=== PATIENT | female | born 1940 | race Caucasian/White ===

== ENCOUNTER 2019-05-03 18:23 | Inpatient (IN) | payer MEDICARE, BC ==
[2019-05-03] MEDS ORDERED: DIPH,PERTUS(ACELL)TETVAC-LF 0.5 ML VIAL IM ONE (18:48)
[2019-05-03] MEDS ORDERED: fentaNYL (PF) 50 MCG/ML 2 ML AMP IV STA (18:49)
--- NOTE | 2019-05-03 18:53 | ED ---
Fall HPI - General Chief Complaint: Fall Stated Complaint: Fall, shoulder injury Time Seen by Provider: 05/03/19 18:40 Source: patient, family Mode of arrival: wheelchair - History of Present Illness Initial Comments: This is an 79-year-old female history of hypertension and hyperlipidemia former smoker also states she has spinal stenosis who was in her kitchen today when she states her leg didn't cooperate with her as sometimes doesn't and she fell onto a carpeted floor. She complains of pain in the right side of her face no overt neck injury no loss of function to her upper or lower extremities except for severe right shoulder pain that she states is about 10/10 in severity she reports no hip pain no other injuries reported. No palpitations. No other modifying factors. She states that this type of incident has happened before. MD Complaint: fall - Related Data Allergies Allergy/AdvReac Type Severity Reaction Status Date / Time codeine Allergy Unknown Verified 05/03/19 19:08 morphine Allergy Unknown Verified 05/03/19 18:32 prednisone Allergy Unknown Verified 05/03/19 19:08 sulfamethoxazole Allergy Unknown Verified 05/03/19 19:08 [From Bactrim] trimethoprim [From Bactrim] Allergy Unknown Verified 05/03/19 19:08 Review of Systems ROS Statement: Those systems with pertinent positive or pertinent negative responses have been documented in the HPI. ROS Other: All systems not noted in ROS Statement are negative. Past Medical History Past Medical History: Hyperlipidemia, Hypertension Additional Past Medical History / Comment(s): crohns History of Any Multi-Drug Resistant Organisms: None Reported Additional Past Surgical History / Comment(s): bowel resections, thyroid surgery Past Psychological History: No Psychological Hx Reported Smoking Status: Former smoker Past Alcohol Use History: None Reported Past Drug Use History: None Reported General Exam - General Exam Comments Initial Comments: This is a well-developed sec appearing female who is awake alert oriented 3 [place] Coma Scale of 15 Limitations: no limitations General appearance: alert, anxious, in distress Head exam: Present: normocephalic, other (Ecchymosis and edema seen to the right lateral and inferior orbit no step-off or crepitation no open wounds) Eye exam: Present: normal appearance, PERRL, EOMI. Absent: scleral icterus, conjunctival injection, periorbital swelling ENT exam: Present: normal exam, mucous membranes moist Neck exam: Present: normal inspection, full ROM. Absent: tenderness Respiratory exam: Present: normal lung sounds bilaterally. Absent: respiratory distress, wheezes, rales, rhonchi, stridor Cardiovascular Exam: Present: regular rate, normal rhythm, normal heart sounds. Absent: systolic murmur, diastolic murmur, rubs, gallop, clicks GI/Abdominal exam: Present: soft, normal bowel sounds. Absent: distended, tenderness, guarding, rebound, rigid Rectal exam: Present: deferred Extremities exam: Present: tenderness, normal capillary refill, other (Tenderness palpation of the proximal right humerus and shoulder no definite evidence of subluxation there evidence of several small lacerations to the anterior and anterolateral shoulder which may represent fracture. A small amount of oozing from the wounds.) Back exam: Present: normal inspection Neurological exam: Present: alert, oriented X3, CN II-XII intact Psychiatric exam: Present: normal affect, normal mood Skin exam: Present: warm, dry. Absent: intact Course Vital Signs 05/03/19 05/03/19 05/03/19 18:28 19:28 20:07 Temperature 97.8 F Pulse Rate 75 77 77 Respiratory 16 18 18 Rate Blood Pressure 190/88 185/79 139/64 O2 Sat by Pulse 95 93 L 94 L Oximetry 05/03/19 21:29 Temperature Pulse Rate 88 Respiratory 18 Rate Blood Pressure 172/76 O2 Sat by Pulse 93 L Oximetry - Reevaluation(s) Reevaluation #1: 05/03/19 22:38 Initially the case was discussed Dr. Eddy was later learned that the patient lives by herself and does need a walker for ambulation. Additionally the patient does have a history of UTI which is precipitated events such as today's. Medical Decision Making - Medical Decision Making I did discuss findings with the patient and her family member. I did discuss the case with Urban who is covering for Dr. Hernandez are all. I also discussed the case with Dr. Eddy. Patient be admitted for IV antibiotics pain control consultation by orthopedics and ultimately placement for rehabilitation. - Lab Data Result diagrams: 05/03/19 20:29 05/03/19 20:29 Lab Results 05/03/19 05/03/19 05/03/19 Range/Units 20:29 20:29 21:00 WBC 16.6 H (3.8-10.6) k/uL RBC 3.22 L (3.80-5.40) m/uL Hgb 9.9 L (11.4-16.0) gm/dL Hct 30.3 L (34.0-46.0) % MCV 94.1 (80.0-100.0) fL MCH 30.8 (25.0-35.0) pg MCHC 32.7 (31.0-37.0) g/dL RDW 14.3 (11.5-15.5) % Plt Count 272 (150-450) k/uL Neutrophils % 90 % Lymphocytes % 5 % Monocytes % 4 % Eosinophils % 0 % Basophils % 0 % Neutrophils # 14.9 H (1.3-7.7) k/uL Lymphocytes # 0.8 L (1.0-4.8) k/uL Monocytes # 0.7 (0-1.0) k/uL Eosinophils # 0.0 (0-0.7) k/uL Basophils # 0.0 (0-0.2) k/uL Sodium 139 (137-145) mmol/L Potassium 3.5 (3.5-5.1) mmol/L Chloride 108 H (98-107) mmol/L Carbon Dioxide 25 (22-30) mmol/L Anion Gap 6 mmol/L BUN 15 (7-17) mg/dL Creatinine 0.82 (0.52-1.04) mg/dL Est GFR (CKD-EPI)AfAm 78 (>60 ml/min/1.73 sqM) Est GFR (CKD-EPI)NonAf 68 (>60 ml/min/1.73 sqM) Glucose 133 H (74-99) mg/dL Calcium 8.6 (8.4-10.2) mg/dL Magnesium 1.6 (1.6-2.3) mg/dL Total Bilirubin 0.5 (0.2-1.3) mg/dL AST 22 (14-36) U/L ALT 13 (4-34) U/L Alkaline Phosphatase 97 (38-126) U/L Creatine Kinase 95 (30-135) U/L Total Protein 6.8 (6.3-8.2) g/dL Albumin 3.6 (3.5-5.0) g/dL Urine Color Yellow Urine Appearance Cloudy H (Clear) Urine pH 6.0 (5.0-8.0) Ur Specific [place] 1.024 (1.001-1.035) Urine Protein 2+ H (Negative) Urine Glucose (UA) Negative (Negative) Urine Ketones Trace H (Negative) Urine Blood Trace H (Negative) Urine Nitrite Positive H (Negative) Urine Bilirubin Negative (Negative) Urine Urobilinogen <2.0 (<2.0) mg/dL Ur Leukocyte Esterase Moderate H (Negative) Urine RBC 3 (0-5) /hpf Urine WBC 26 H (0-5) /hpf Ur Squamous Epith Cells 1 (0-4) /hpf Urine Bacteria Rare H (None) /hpf Hyaline Casts 1 (0-2) /lpf Urine Mucus Rare H (None) /hpf - Radiology Data Radiology results: report reviewed (I did review the imaging and report a comminuted proximal right humerus fracture noted. I do suspect puncture wounds on the next. Her lateral aspect of the skin secondary to puncture a bone fragment.), image reviewed Disposition Clinical Impression: Fall, Urinary tract infection, Open right humeral fracture, Leukocytosis Disposition: ADMITTED IP TO THIS HOSP Condition: Fair Referrals: Luz Elena Mayes DO [Primary Care Provider] - 1-2 days
[2019-05-03] MEDS ORDERED: ONDANSETRON 4 MG/2 ML VIAL IVP STA (18:56)
--- NOTE | 2019-05-03 19:23 | XR ---
EXAMINATION TYPE: XR shoulder complete RT DATE OF EXAM: 05/03/2019 CLINICAL HISTORY: Falling injury with pain. TECHNIQUE: Three views of the right shoulder are obtained. COMPARISON: None. FINDINGS: [place] osseous structures are demineralized. Acute comminuted displaced fracture surgical neck right proximal humerus with and some impaction of t he distal fracture fragment. 2 smaller fracture fragments noted. Additional fracture fragment involve s the greater tuberosity. No glenohumeral joint dislocation. Acromioclavicular joint is preserved. Vi sualized right lung is clear. IMPRESSION: There is acute displaced multi partite comminuted fracture surgical neck right humerus. (Initial encounter closed type posttraumatic fracture)
--- NOTE | 2019-05-03 19:31 | CT ---
EXAMINATION TYPE: CT brain cspine wo con, CT facial bones wo con DATE OF EXAM: 05/03/2019 COMPARISON: NONE HISTORY: Fall injury with headache, facial pain, and neck pain. CT DLP: combined DLP 992.6 mGycm. Automated Exposure Control for Dose Reduction was Utilized. TECHNIQUE: CT scan of the head and cervical spine are performed without contrast. FINDINGS: There is no acute intracranial hemorrhage or midline shift identified. Diffuse ventricula r and sulcal prominence. Degree of ventricular dilatation slightly out of proportion to degree of sul delores effacement. Underlying normal pressure hydrocephalus is not excluded. Correlation with old outsid e CT or MRI would be beneficial. Marked low attenuation in the deep and periventricular white matter. High right frontal craniotomy change. The mandible is intact. Temporomandibular joints are maintained bilaterally with bilateral narrowing and flattening of the mandibular condyles greater on the left. Nasal bones are intact. Orbital floors and montiel are intact. There are scleral calcifications in both globes. Intraconal fat is preserved b ilaterally. Zygomatic arches are intact. Pterygoid plates are intact. Paranasal sinuses are grossly c lear. Moderate subcutaneous edema with focal to 2.3 x 1.1 cm right cheek acute hematoma axial image 4 4. Cervical spine is visualized in its entirety from C1 through upper thoracic levels and demonstrates s light dextroconvex scoliotic curvature on coronal images without evidence of acute fracture or disloc ation. Prevertebral soft tissue appears within normal limits. The C1-C2 articulation is within norm al limits on the coronal images. Vertebral body heights are preserved. Moderate disc space narrowing C5-C6 and C6-C7 levels. There are uncovertebral facet degenerative changes bilaterally causing bilat eral multilevel neural foraminal narrowing most prominent mid cervical levels. There is heterogeneous slightly enlarged thyroid, underlying nodule suspected. Correlate clinically to assess for nonemerge nt thyroid ultrasound follow-up. Left-sided carotid stent noted IMPRESSION: 1. There is no acute fracture or dislocation evident in the cervical spine. 2. No acute intracranial hemorrhage or midline shift is seen. [id number] diffuse cerebral atrop hy with fairly advanced chronic small vessel ischemic change and right-sided surgical change noted. 3. No acute displaced facial bone fracture. Moderate right cheek soft tissue injury surrounding small subcutaneous hematoma.
[2019-05-03] MEDS ORDERED: METOCLOPRAMIDE 5 MG/ML 2 ML VIAL IVP STA (19:39)
[2019-05-03 20:42] LABS: Basophils % (A) 0 %; Eosinophils % (A) 0 %; HCT 30.3 % (34.0-46.0); HGB 9.9 gm/dL (11.4-16.0); Lymphocytes # (A) 0.8 k/uL (1.0-4.8); Lymphocytes % (A) 5 %; MCH 30.8 pg (25.0-35.0); MCHC 32.7 g/dL (31.0-37.0); MCV 94.1 fL (80.0-100.0); Mean Platelet Volume 8.4; Monocytes # (A) 0.7 k/uL (0-1.0); Monocytes % (A) 4 %; Neutrophils # (A) 14.9 k/uL (1.3-7.7); Neutrophils % (A) 90 %; Platelet Count 272 k/uL (150-450); RBC 3.22 m/uL (3.80-5.40); RDW 14.3 % (11.5-15.5); WBC 16.6 k/uL (3.8-10.6)
[2019-05-03 20:50] LABS: Albumin 3.6 g/dL (3.5-5.0); Calcium 8.6 mg/dL (8.4-10.2); Magnesium 1.6 mg/dL (1.6-2.3); Potassium 3.5 mmol/L (3.5-5.1); Total Bilirubin 0.5 mg/dL (0.2-1.3); Total Protein 6.8 g/dL (6.3-8.2)
[2019-05-03 21:25] LABS: Appearance,Urine Cloudy (Clear); Bacteria,Urine Rare /hpf; Bilirubin,Urine Negative (Negative); Blood,Urine Trace (Negative); Color,Urine Yellow; Glucose,Urine (UA) Negative (Negative); Hyaline Casts,Urine 1 /lpf (0-2); Ketones,Urine Trace (Negative); Leukocyte Esterase,Urine Moderate (Negative); Mucus,Urine Rare /hpf; Nitrite,Urine Positive (Negative); Protein,Urine 2+ (Negative); RBC,Urine 3 /hpf (0-5); Specific Gravity,Urine 1.024 (1.001-1.035); Squamous Epithelial Cell,Urine 1 /hpf (0-4); Urobilinogen,Urine <2.0 mg/dL (<2.0); WBC,Urine 26 /hpf (0-5)
[2019-05-03] MEDS ORDERED: NALOXONE 0.4 MG/ML 1 ML VIAL IV PRN (22:43)
[2019-05-03] MEDS ORDERED: ONDANSETRON 4 MG/2 ML VIAL IVP PRN (22:43)
[2019-05-03] MEDS: SODIUM CHLORIDE 0.9% 1,000 ML IV SCH (23:12)
[2019-05-03] MEDS: HYDROcodone/APAP 5-325MG 1 EACH TAB PO SCH (23:48)
[2019-05-04] MEDS: HYDROcodone/APAP 5-325MG 1 EACH TAB PO SCH ×3 (04:23→12:57)
--- NOTE | 2019-05-04 11:01 | P.CNOR ---
<Derek Cotter - Last Filed: 05/04/19 11:00> History of Present Illness - [facility] Consult date: 05/04/19 Requesting physician: Lazarus Haley Consult reason: fracture (Acute displaced multipartite comminuted fracture at the surgical neck of the right humerus) History of present illness: Patient is a very pleasant 79-year-old female who is seen and examined at bedside for further evaluation regards to a right proximal humerus fracture status post fall. Patient states she her legs gave out on her and she fell to the floor. She remembers beginning to fall and then found herself lying on the floor. She has experienced increased right shoulder pain since that time. She has significant pain in the right shoulder. She is unable to move her right shoulder. She presented to [facility] for further evaluation. She is also found to have bruising over the right cheek and lateral part of the right eye. Upon further evaluation emergency department, she was found to have a right proximal humerus fracture. She was also found to have multiple small lacerations to the anterior and anterolateral shoulder which made have been caused by her fracture. Case had been discussed in detail by the emergency department with Dr. Edvin Eddy. The emergency department was originally planning to discharge the patient home but it was later found the patient lives by herself and uses a walker to aid in ambulation. Patient was also diagnosed with a urinary tract infection. She admitted to medicine for further treatment evaluation with orthopedics on consult. Patient was admitted for IV antib iotics, pain control, and placement for rehabilitation. Patient's medical history includes hypertension, hyperlipidemia, spinal stenosis and former smoker. Patient denies loss of consciousness. She denies any other injuries. Past Medical History Past Medical History: Coronary Artery Disease (CAD), COPD, CVA/TIA, GERD/Reflux, Hyperlipidemia, Hypertension, Myocardial Infarction ([place]), Thyroid Disorder Additional Past Medical History / Comment(s): crohns, atrial septic defect,depression ,restless leg syndrome, myasthenia, [place], pneumonia, sepsis, PA, UTI, IBS, Last Myocardial Infarction Date:: unknown History of Any Multi-Drug Resistant Organisms: None Reported Additional Past Surgical History / Comment(s): bowel resections, thyroid surgery, cataracts removed Past Psychological History: No Psychological Hx Reported Smoking Status: Former smoker Past Alcohol Use History: None Reported Past Drug Use History: None Reported Medications and Allergies Home Medications Medication Instructions Recorded Confirmed Type Atorvastatin [Lipitor] 10 mg PO DAILY 05/04/19 05/04/19 History Cyanocobalamin [Vitamin B-12 1,000 mcg IM QMONTH 05/04/19 05/04/19 History Injection] DULoxetine HCL [Cymbalta] 30 mg PO DAILY 05/04/19 05/04/19 History HYDROcodone/APAP 5-325MG [[place] 1 tab PO Q4HR PRN 05/04/19 05/04/19 History 5-325] Losartan Potassium 100 mg PO DAILY 05/04/19 05/04/19 History Methimazole [Tapazole] 5 mg PO MOTUWETHFR 05/04/19 05/04/19 History Metoprolol Tartrate [Lopressor] 50 mg PO BID 05/04/19 05/04/19 History Pantoprazole Sodium [Protonix] 40 mg PO DAILY 05/04/19 05/04/19 History amLODIPine [Norvasc] 5 mg PO Q48H 05/04/19 05/04/19 History hydrALAZINE HCL [Apresoline] 25 mg PO Q12H 05/04/19 05/04/19 History Allergies Allergy/AdvReac Type Severity Reaction Status Date / Time codeine Allergy Unknown Verified 05/04/19 09:59 morphine Allergy Unknown Verified 05/04/19 09:59 prednisone Allergy Unknown Verified 05/04/19 09:59 sulfamethoxazole Allergy Unknown Verified 05/04/19 09:59 [From Bactrim] trimethoprim [From Bactrim] Allergy Unknown Verified 05/04/19 09:59 Physical Examination Physical Exam: Patient is awake, alert, and oriented 3 Vital signs stable Adequate chest excursion with deep inspiration and expiration with O2 nasal cannula Evidence of significant swelling over the right anterior and anterior lateral right shoulder extending into the right bicep Pain on palpation over the right proximal humerus Sling intact at the right upper extremity Patient is able to perform adequate flexion and extension of the right elbow without difficulty Active range of motion of all fingers of the right hand and wrist without difficulty Neurovascular intact right upper extremity Evidence of a couple small wounds over the right shoulder that could be due to the right proximal humerus fracture that are currently scabbed over There is no evidence of drainage or any purulent discharge from the small wound sites over the right shoulder Significant pain with any mobility of the right shoulder Results Pertinent studies: X-rays of the right shoulder taken on 04/25/2019: Acute displaced multipartite comminuted fracture at the surgical neck of the right humerus CT of the brain, cervical spine, and facial bones taken on 05/03/2019: No evidence of acute fracture or dislocation evident in the cervical spine; no acute intracranial hemorrhage or midline shift shift is seen; no acute displaced facial bone fracture; moderate right cheek soft tissue injury with surrounding small subcutaneous hematoma - Labs Labs: Abnormal Lab Results - Last 24 Hours (Table) 05/03/19 05/03/19 05/03/19 Range/Units 20:29 20: 21:00 WBC 16.6 H (3.8-10.6) k/uL RBC 3.22 L (3.80-5.40) m/uL Hgb 9.9 L (11.4-16.0) gm/dL Hct 30.3 L (34.0-46.0) % Neutrophils # 14.9 H (1.3-7.7) k/uL Lymphocytes # 0.8 L (1.0-4.8) k/uL Chloride 108 H (98-107) mmol/L Glucose 133 H (74-99) mg/dL Urine Appearance Cloudy H (Clear) Urine Protein 2+ H (Negative) Urine Ketones Trace H (Negative) Urine Blood Trace H (Negative) Urine Nitrite Positive H (Negative) Ur Leukocyte Esterase Moderate H (Negative) Urine WBC 26 H (0-5) /hpf Urine Bacteria Rare H (None) /hpf Urine Mucus Rare H (None) /hpf H & H 05/03/19 Range/Units 20:29 Hgb 9.9 L (11.4-16.0) gm/dL Hct 30.3 L (34.0-46.0) % Result Diagrams: 05/03/19 20:29 05/03/19 20:29 Assessment and Plan Assessment: Assessment: Acute displaced multipartite comminuted fracture at the surgical neck of the right humerus Right shoulder pain Status post fall Small wounds over the right shoulder which may have been caused to fracture the time of fall Moderate right cheek soft tissue injury with surrounding small subcutaneous hematoma Urinary tract infection Utilizing walker to aid in ambulation Hypertension Hyperlipidemia History of spinal stenosis (1) Right shoulder pain Current Visit: Yes Status: Acute Code(s): M25.511 - PAIN IN RIGHT SHOULDER SNOMED Code(s): 07718234 (2) Status post fall Current Visit: Yes Status: Acute Code(s): Z91.81 - HISTORY OF FALLING SNOMED Code(s): 146087813 (3) Facial injury Current Visit: Yes Status: Acute Code(s): S09.93XA - UNSPECIFIED INJURY OF FACE, INITIAL ENCOUNTER SNOMED Code(s): 388528866 (4) Walker as ambulation aid Current Visit: Yes Status: Acute Code(s): Z99.89 - DEPENDENCE ON OTHER ENABLING MACHINES AND DEVICES SNOMED Code(s): 871029931 (5) Hypertension Current Visit: Yes Status: Acute Code(s): I10 - ESSENTIAL (PRIMARY) HYPERTENSION SNOMED Code(s): 64187786 (6) Hyperlipidemia Current Visit: Yes Status: Acute Code(s): E78.5 - HYPERLIPIDEMIA, UNSPECIFIE D SNOMED Code(s): 02377855 (7) History of spinal stenosis Current Visit: Yes Status: Acute Code(s): Z87.39 - PERSONAL HISTORY OF DISEASES OF THE MS SYS AND CONN TISS SNOMED Code(s): 252299701 (8) Open right humeral fracture Current Visit: Yes Status: Acute Code(s): S42.301B - UNSP FX SHAFT OF HUMERUS, RIGHT ARM, INIT FOR OPN FX SNOMED Code(s): 32453266 (9) Urinary tract infection Current Visit: Yes Status: Acute Code(s): N39.0 - URINARY TRACT INFECTION, SITE NOT SPECIFIED SNOMED Code(s): 58580196 Plan: Plan: 1. Patient has been discussed in detail with Dr. Edvin Eddy. Dr. Eddy discussed the patient in detail with Dr. Haley in the emergency department. Patient does have evidence of a Acute displaced multipartite comminuted fracture at the surgical neck of the right humerus. The alignment appears to be adequately maintained even with displacement. At this time, Dr. Eddy would like to continue conservative treatment options. He is not currently planning for surgical intervention for stabilization of the right shoulder. He is not planning for irrigation and debridement of the right shoulder. Patient does have some small wounds over the right shoulder that could've been caused by the fracture the time of her fall. Those wounds are currently scabbed over without any drainage from the sites. He would recommend continuing with IV antibiotics for both wound coverage and coverage for her urinary tract infection. At this time patient should avoid any active range of motion of the right upper extremity. She is nonweightbearing with the right upper extremity. She may continue to use a sling to help support the right shoulder for comfort support as needed. We did discuss she can perform some active range of motion with flexion and extension of the right elbow to help avoid getting a frozen elbow. She may do light activities with her right hand but should avoid any lifting with the right upper extremity. At this time, patient will be cleared for discharge from an orthopedic standpoint. We will pl an have her follow up in the outpatient setting with Dr. Eddy at [facility] in approximately 1 week for further evaluation. 2. The patient will continue to be seen by medicine for treatment evaluation regards to other medical diagnoses including urinary tract infection Time with Patient: Greater than 30 (Including obtaining history, physical examination, reviewing of imaging, and dictation.) <Edvin Eddy - Last Filed: 05/04/19 20:48> Results - Labs Labs: Abnormal Lab Results - Last 24 Hours (Table) 05/03/19 05/03/19 05/03/19 Range/Units 20:29 20:29 21:00 WBC 16.6 H (3.8-10.6) k/uL RBC 3.22 L (3.80-5.40) m/uL Hgb 9.9 L (11.4-16.0) gm/dL Hct 30.3 L (34.0-46.0) % Neutrophils # 14.9 H (1.3-7.7) k/uL Lymphocytes # 0.8 L (1.0-4.8) k/uL Chloride 108 H (98-107) mmol/L Glucose 133 H (74-99) mg/dL Urine Appearance Cloudy H (Clear) Urine Protein 2+ H (Negative) Urine Ketones Trace H (Negative) Urine Blood Trace H (Negative) Urine Nitrite Positive H (Negative) Ur Leukocyte Esterase Moderate H (Negative) Urine WBC 26 H (0-5) /hpf Urine Bacteria Rare H (None) /hpf Urine Mucus Rare H (None) /hpf H & H 05/03/19 Range/Units 20:29 Hgb 9.9 L (11.4-16.0) gm/dL Hct 30.3 L (34.0-46.0) % Result Diagrams: 05/03/19 20:29 05/03/19 20:29 Assessment and Plan Plan: Reviewed and agree with above (amendments/corrections noted below). The patient was subsequently seen and examined by me as well. S: She states that she simply stumbled over her own feet and fell directly onto her right shoulder. She denies any other associated significant injuries. She is right-hand dominant. She lives alone and uses a walker for ambulation assistance. O: Moderate ecchymosis around the anterolateral aspect of the proximal humerus. Tiny punctate wounds in this area, all of which are closed, the largest linear laceration measuring approximately 3 mm. No erythema, drainage or subcutaneous fluctuance. Imaging: Mildly displaced two-part proximal humerus fracture with moderate metaphyseal comminution. Mild rotation of the head fragment but no gross angular deformity at the fracture site. No dislocation or subluxation of the glenohumeral joint. A: Mildly displaced, comminuted 2-part right proximal humerus fracture status post fall P: I reviewed the clinical and radiographic findings in detail with the patient. We discussed the injury and that this could represent an open fracture (with potential for subsequent infection). We discussed the pros and cons of surgical and nonsurgical treatment. Given the appearance of the wound and the fracture, I recommended against surgical debridement. The risks and benefits of each treatment were reviewed in detail and she agreed to forgo operative debridement. She will be continued on IV first generation cephalosporins for 24 hours followed by 5 days of oral Keflex. We reviewed potential signs and symptoms of a developing infection. She was instructed to contact my office immediately if any of these develop. Plan for nonoperative treatment of the fracture with relative rest and symptomatic treatment. The sling is for comfort only and may be removed at any time. It should not be worn while in bed or at rest. She was encouraged to perform regular active range of motion of the hand, wrist and elbow. She may begin gentle pendulums. No active motion of the shoulder. Okay to use the hand for light activities with her arm at her side. Follow-up outpatient in 10 days for reevaluation with repeat x-rays of the shoulder. Edvin Eddy D.O. [facility]
[2019-05-04] MEDS: SODIUM CHLORIDE 0.9% 1,000 ML IV SCH (12:57)
[2019-05-04] MEDS ORDERED: KETOROLAC 30 MG/ML 1 ML VIAL IVP PRN (13:03)
--- NOTE | 2019-05-04 13:56 | P.HPIM ---
History of Present Illness Patient is a pleasant 79-year-old female came in after a fall found to have a comminuted fracture of the right humerus. Patient denied any fever chills patient denied any dysuria nausea vomiting. Patient was evaluated by arthritic surgery and they believe this is nonsurgical. Patient had some bruises on the right shoulder in the right eye. Patient denied any increased urination burning urination or suprapubic pain patient doesn't have any symptoms of urinary tract infection. Her urine is bit abnormal but this is secondary to symptomatic bacteriuria Review of Systems REVIEW OF SYSTEMS: CONSTITUTIONAL: No fever, no malaise, no fatigue. HEENT: No recent visual problems or hearing problems. Denied any sore throat. CARDIOVASCULAR: No chest pain, orthopnea, PND, no palpitations, no syncope. PULMONARY: No shortness of breath, no cough, no hemoptysis. GASTROINTESTINAL: No diarrhea, no nausea, no vomiting, no abdominal pain. NEUROLOGICAL: No headaches, no weakness, no numbness. HEMATOLOGICAL: Denies any bleeding or petechiae. GENITOURINARY: Denies any burning micturition, frequency, or urgency. MUSCULOSKELETAL/RHEUMATOLOGICAL: Pain in the right shoulder ENDOCRINE: Denies any polyuria or polydipsia. The rest of the 14-point review of systems is negative. Past Medical History Past Medical History: Coronary Artery Disease (CAD), COPD, CVA/TIA, GERD/Reflux, Hyperlipidemia, Hypertension, Myocardial Infarction (RI), Thyroid Disorder Additional Past Medical History / Comment(s): crohns, atrial septic defect,dep ression ,restless leg syndrome, myasthenia, RI, pneumonia, sepsis, PA, UTI, IBS, Last Myocardial Infarction Date:: unknown History of Any Multi-Drug Resistant Organisms: None Reported Additional Past Surgical History / Comment(s): bowel resections, thyroid surgery, cataracts removed Past Psychological History: No Psychological Hx Reported Smoking Status: Former smoker Past Alcohol Use History: None Reported Past Drug Use History: None Reported Medications and Allergies Home Medications Medication Instructions Recorded Confirmed Type Atorvastatin [Lipitor] 10 mg PO DAILY 05/04/19 05/04/19 History Cyanocobalamin [Vitamin B-12 1,000 mcg IM QMONTH 05/04/19 05/04/19 History Injection] DULoxetine HCL [Cymbalta] 30 mg PO DAILY 05/04/19 05/04/19 History HYDROcodone/APAP 5-325MG [[place] 1 tab PO Q4HR PRN 05/04/19 05/04/19 History 5-325] Losartan Potassium 100 mg PO DAILY 05/04/19 05/04/19 History Methimazole [Tapazole] 5 mg PO MOTUWETHFR 05/04/19 05/04/19 History Metoprolol Tartrate [Lopressor] 50 mg PO BID 05/04/19 05/04/19 History Pantoprazole Sodium [Protonix] 40 mg PO DAILY 05/04/19 05/04/19 History amLODIPine [Norvasc] 5 mg PO Q48H 05/04/19 05/04/19 History hydrALAZINE HCL [Apresoline] 25 mg PO Q12H 05/04/19 05/04/19 History Allergies Allergy/AdvReac Type Severity Reaction Status Date / Time codeine Allergy Unknown Verified 05/04/19 09:59 morphine Allergy Unknown Verified 05/04/19 09:59 prednisone Allergy Unknown Verified 05/04/19 09:59 sulfamethoxazole Allergy Unknown Verified 05/04/19 09:59 [From Bactrim] trimethoprim [From Bactrim] Allergy Unknown Verified 05/04/19 09:59 Physical Exam Vitals: Vital Signs Temp Pulse Pulse Resp BP BP Pulse Ox 05/04/19 11:19 97 F L 98 17 142/63 90 L 05/04/19 08:00 91 16 05/04/19 05:53 167/75 05/04/19 05:47 98.4 F 91 16 199/65 93 L 05/03/19 23:58 98.1 F 87 16 196/79 94 L 05/03/19 21:29 88 18 172/76 93 L 05/03/19 20:07 77 18 139/64 94 L 05/03/19 19:28 77 18 185/79 93 L 05/03/19 18:28 97.8 F 75 16 190/88 95 Intake and Output 05/03/19 05/04/19 05/04/19 22:59 06:59 14:59 Intake Total 320 Balance 320 Intake: Intake, IV Titration 320 Amount Sodium Chloride 0.9% 1, 320 000 ml @ 80 mls/hr IV . [id number] [facility] Rx#:[id number] Other: # Voids 1 Weight 54.431 kg 54.431 kg PHYSICAL EXAMINATION: GENERAL: The patient is alert and oriented x3, not in any acute distress. Thin built HEENT: Pupils are round and equally reacting to light. EOMI. No scleral icterus. No conjunctival pallor. Normocephalic, atraumatic. No pharyngeal erythema. No thyromegaly. CARDIOVASCULAR: S1 and S2 present. No murmurs, rubs, or gallops. PULMONARY: Chest is clear to auscultation, no wheezing or crackles. ABDOMEN: Soft, nontender, nondistended, normoactive bowel sounds. No palpable organomegaly. MUSCULOSKELETAL: Deferred to orthopedic surgery patient has a sling to the right arm EXTREMITIES: No cyanosis, clubbing, or pedal edema. NEUROLOGICAL: Gross neurological examination did not reveal any focal deficits. SKIN: Bruises as mentioned in the HPI Results CBC & Chem 7: 05/03/19 20:29 05/03/19 20:29 Labs: Abnormal Lab Results - Last 24 Hours (Table) 05/03/19 05/03/19 05/03/19 Range/Units 20:29 20:29 21:00 WBC 16.6 H (3.8-10.6) k/uL RBC 3.22 L (3.80-5.40) m/uL Hgb 9.9 L (11.4-16.0) gm/dL Hct 30.3 L (34.0-46.0) % Neutrophils # 14.9 H (1.3-7.7) k/uL Lymphocytes # 0.8 L (1.0-4.8) k/uL Chloride 108 H (98-107) mmol/L Glucose 133 H (74-99) mg/dL Urine Appearance Cloudy H (Clear) Urine Protein 2+ H (Negative) Urine Ketones Trace H (Negative) Urine Blood Trace H (Negative) Urine Nitrite Positive H (Negative) Ur Leukocyte Esterase Moderate H (Negative) Urine WBC 26 H (0-5) /hpf Urine Bacteria Rare H (None) /hpf Urine Mucus Rare H (None) /hpf Assessment and Plan Plan: -Comminuted fracture of the right arm: Nonsurgical conservative management with the sliding pain medications. -Fall mechanical fall due to generalized weakness and muscle atrophy age-related will benefit from a calcium supplementation and vitamin D -Multiple facial bruises -Asymptomatic bacteriuria for which patient will not require any antibiotics -Hypothyroidism continue with present methimazole I'll obtain TSH -COPD without any acute exacerbation patient used to be smoker quit years ago -Hypertension -Hyperlipidemia-chronic low back pain and spinal stenosis -Coronary artery disease For above-mentioned chronic medical problems patient was resumed on appropriate medications patient's patient will be on DVT prophylaxis with subcu heparin
[2019-05-04] MEDS: HYDROcodone/APAP 5-325MG 1 EACH TAB PO PRN (19:13)
[2019-05-04] MEDS: HEPARIN SODIUM,PORCINE 5,000 UNIT/ML 1 ML VIAL SQ SCH (20:19)
[2019-05-04] MEDS: METOPROLOL TARTRATE 50 MG TAB PO SCH (20:19)
[2019-05-04] MEDS ORDERED: FAMOTIDINE 20 MG TAB PO SCH (21:00)
[2019-05-05] MEDS: HYDROcodone/APAP 5-325MG 1 EACH TAB PO PRN ×3 (02:27→21:06)
[2019-05-05 06:38] LABS: Calcium 7.8 mg/dL (8.4-10.2); Potassium 3.6 mmol/L (3.5-5.1)
[2019-05-05 06:55] LABS: HCT 24.3 % (34.0-46.0); Hypochromasia Slight; MCHC 32.8 g/dL (31.0-37.0); MCV 97.5 fL (80.0-100.0); Mean Platelet Volume 9.1; Platelet Count 219 k/uL (150-450); RBC 2.49 m/uL (3.80-5.40); RDW 14.4 % (11.5-15.5); WBC 8.9 k/uL (3.8-10.6)
[2019-05-05] MEDS: PANTOPRAZOLE 40 MG TABLET PO SCH (08:01)
[2019-05-05] MEDS: ATORVASTATIN 10 MG TAB PO SCH (08:01)
[2019-05-05] MEDS: METHIMAZOLE 5 MG TAB PO SCH (08:01)
[2019-05-05] MEDS: DULoxetine HCL 30 MG CAPSULE.DR PO SCH (08:01)
[2019-05-05] MEDS: LOSARTAN 50 MG TAB PO SCH (08:01)
[2019-05-05] MEDS: METOPROLOL TARTRATE 50 MG TAB PO SCH ×2 (08:01→21:07)
[2019-05-05] MEDS: CEPHALEXIN 500 MG CAP PO SCH ×4 (08:02→21:07)
[2019-05-05] MEDS: HEPARIN SODIUM,PORCINE 5,000 UNIT/ML 1 ML VIAL SQ SCH ×2 (08:02→21:07)
--- NOTE | 2019-05-05 14:01 | P.PN ---
Subjective Progress Note Date: 05/05/19 Principal diagnosis: Patient is a pleasant 79-year-old female came in after a fall found to have a comminuted fracture of the right humerus. Patient denied any fever chills patient denied any dysuria nausea vomiting. Patient was evaluated by arthritic surgery and they believe this is nonsurgical. Patient had some bruises on the right shoulder in the right eye. Patient denied any increased urination burning urination or suprapubic pain patient doesn't have any symptoms of urinary tract infection. Her urine is bit abnormal but this is secondary to symptomatic bacteriuria 05/05/2019 Patient is seen and evaluated in follow-up today sitting up in the chair and continuing to have severe right upper extremity pain with movement. Patient was seen and evaluated by orthopedic surgery recommending conservative treatment at this time with no surgery. Patient will be going to [facility] for continued PT/OT therapy. Currently no reports of chest pain, shortness of breath, or palpitations. Patient is afebrile. No reports of nausea or vomiting and patient is tolerating diet. Patient currently remains on Keflex oral. PT/OT following. Objective - Vital Signs Vital signs: Vital Signs Temp 98.8 F 05/05/19 11:53 Pulse 60 05/05/19 11:53 Resp 17 05/05/19 11:53 BP 159/52 05/05/19 11:53 Pulse Ox 94 L 05/05/19 11:53 Intake & Output 05/04/19 05/05/19 05/05/19 18:59 06:59 18:59 Intake Total 920 Balance 920 Intake: Intake, IV Titration 920 Amount Sodium Chloride 0.9% 1, 920 000 ml @ 80 mls/hr IV . [id number] [facility] Rx#:[id number] Other: # Voids 3 - Exam GENERAL: The patient is alert and oriented x3, not in any acute distress. Thin built HEENT: Pupils are round and equally reacting to light. EOMI. No scleral icterus. No conjunctival pallor. Normocephalic, atraumatic. No pharyngeal erythema. No thyromegaly. CARDIOVASCULAR: S1 and S2 present. No murmurs, rubs, or gallops. PULMONARY: Chest is clear to auscultation, no wheezing or crackles. ABDOMEN: Soft, nontender, nondistended, normoactive bowel sounds. No palpable organomegaly. MUSCULOSKELETAL: Deferred to orthopedic surgery patient has a sling to the right arm EXTREMITIES: No cyanosis, clubbing, or pedal edema. NEUROLOGICAL: Gross neurological examination did not reveal any focal deficits. SKIN: Bruises as mentioned in the HPI - Labs CBC & Chem 7: 05/05/19 05:33 05/05/19 05:33 Labs: Abnormal Lab Results - Last 24 Hours (Table) 05/05/19 05/05/19 Range/Units 05:33 05:33 RBC 2.49 L (3.80-5.40) m/uL Hgb 8.0 L D (11.4-16.0) gm/dL Hct 24.3 L (34.0-46.0) % Sodium 136 L (137-145) mmol/L Chloride 109 H (98-107) mmol/L Carbon Dioxide 21 L (22-30) mmol/L Glucose 112 H (74-99) mg/dL Calcium 7.8 L (8.4-10.2) mg/dL Microbiology - Last 24 Hours (Table) 05/04/19 05:49 Blood Culture - Preliminary Blood No Growth after 24 hours Assessment and Plan Assessment: -Comminuted fracture of the right arm: Nonsurgical conservative management with sling and pain medications. -Fall mechanical fall due to generalized weakness and muscle atrophy age-related will benefit from a calcium supplementation and vitamin D -Multiple facial bruises -Asymptomatic bacteriuria for which patient will not require any antibiotics -Hypothyroidism continue with present methimazole. TSH is 2.3 -COPD without any acute exacerbation patient used to be smoker quit years ago -Hypertension -Hyperlipidemia -chronic low back pain and spinal stenosis -Coronary artery disease -DVT prophylaxis: Subcu heparin -GI prophylaxis: Protonix Plan: Continue with current medications and symptomatic treatment. Continue working with PT/OT. Patient requiring 3 night stay and will be going to [facility] for continued rehab. Further recommendations to follow.
--- NOTE | 2019-05-05 15:09 | P.PN ---
Subjective Progress Note Date: 05/05/19 This patient is an 79-year-old female who is being followed for a right proximal humerus fracture. She states she fell on 05/03/19 and landed directly onto the right upper extremity. X-rays in the emergency department revealed a right proximal humerus fracture. She also was found to multiple small lacerations to the anterior lateral shoulder. The patient was admitted under the care of internal medicine with a consult placed to orthopedic surgery in regards to her right proximal humerus fracture. Patient is examined bedside this morning. Her right upper extremity is currently immobilized in a sling. She states her right upper arm is sore, although her pain is currently well-controlled. She denies pain that radiates down her arm. She denies numbness or tingling of the right upper extremity. She is overall doing well this morning. She denies chest pain, shortness breath, nausea, vomiting, fevers, chills. Vital signs stable. Objective - Vital Signs Vital signs: Vital Signs Temp 98.8 F 05/05/19 11:53 Pulse 60 05/05/19 11:53 Resp 17 05/05/19 11:53 BP 159/52 05/05/19 11:53 Pulse Ox 94 L 05/05/19 11:53 Intake & Output 05/04/19 05/05/19 05/05/19 18:59 06:59 18:59 Intake Total 920 400 Balance 920 400 Intake: Intake, IV Titration 920 Amount Sodium Chloride 0.9% 1, 920 000 ml @ 80 mls/hr IV . [id number] [facility] Rx#:[id number] Oral 400 Other: # Voids 3 - Exam On examination, the patient is sitting up in bed in no apparent distress. She is alert and oriented 3. On inspection, the patient has resolving ecchymosis of the right side of her face. Right upper extremity is immobilized in a sling. On inspection of the right upper extremity, there is ecchymosis of the upper arm. There is a very small laceration of the anterior lateral shoulder. There is no drainage from this wound. There is no surrounding erythema, warmth, fluctuance. The patient has no pain with passive range of motion of the elbow or wrist. Range of motion of the shoulder is not tested at this time. Motor and sensory function are intact of the right upper extremity. The right upper extremity is warm and well-perfused with brisk capillary refill distally. Radial pulse +2. - Labs CBC & Chem 7: 05/05/19 05:33 05/05/19 05:33 Labs: Abnormal Lab Results - Last 24 Hours (Table) 05/05/19 05/05/19 Range/Units 05:33 05:33 RBC 2.49 L (3.80-5.40) m/uL Hgb 8.0 L D (11.4-16.0) gm/dL Hct 24.3 L (34.0-46.0) % Sodium 136 L (137-145) mmol/L Chloride 109 H (98-107) mmol/L Carbon Dioxide 21 L (22-30) mmol/L Glucose 112 H (74-99) mg/dL Calcium 7.8 L (8.4-10.2) mg/dL Microbiology - Last 24 Hours (Table) 05/04/19 05:49 Blood Culture - Preliminary Blood No Growth after 24 hours Assessment and Plan Assessment: Mildly displaced, right proximal humerus fracture status-post fall Plan: - We'll recommend continuation with nonoperative treatment at this time. Patient may use sling for the right upper extremity for comfort. May remove sling anytime. Sling should not be worn while in bed or at rest. - She should continue gentle range of motion of the elbow and wrist. No active range of motion of the shoulder at this time. She may begin gentle pendulums. - Patient has transitioned from the IV cephalosporin to oral Keflex. Continue oral Keflex for 5 days. - Anticipate discharge to rehab within the next 1-2 days, ok for discharge from orthopedic standpoint. Patient will follow-up in the office with Dr. Eddy in 10 days for repeat x-rays of the shoulder. We will continue to follow patient as needed while in the hospital.
[2019-05-05] MEDS ORDERED: hydrALAZINE HCL 25 MG TAB PO PRN (22:48)
[2019-05-06] MEDS: HEPARIN SODIUM,PORCINE 5,000 UNIT/ML 1 ML VIAL SQ SCH ×2 (09:03→20:51)
[2019-05-06] MEDS: ATORVASTATIN 10 MG TAB PO SCH (09:03)
[2019-05-06] MEDS: DULoxetine HCL 30 MG CAPSULE.DR PO SCH (09:03)
[2019-05-06] MEDS: CEPHALEXIN 500 MG CAP PO SCH ×4 (09:03→20:57)
[2019-05-06] MEDS: PANTOPRAZOLE 40 MG TABLET PO SCH (09:04)
[2019-05-06] MEDS: METOPROLOL TARTRATE 50 MG TAB PO SCH ×2 (09:04→20:51)
[2019-05-06] MEDS: LOSARTAN 50 MG TAB PO SCH (09:04)
[2019-05-06] MEDS: METHIMAZOLE 5 MG TAB PO SCH (09:04)
[2019-05-06] MEDS: HYDROcodone/APAP 5-325MG 1 EACH TAB PO PRN (09:04)
[2019-05-06 09:40] LABS: Basophils % (A) 0 %; Eosinophils % (A) 0 %; HCT 27.9 % (34.0-46.0); Lymphocytes % (A) 12 %; MCH 31.3 pg (25.0-35.0); MCHC 32.3 g/dL (31.0-37.0); MCV 96.9 fL (80.0-100.0); Mean Platelet Volume 9.1; Monocytes # (A) 0.8 k/uL (0-1.0); Monocytes % (A) 9 %; Neutrophils # (A) 6.3 k/uL (1.3-7.7); Neutrophils % (A) 74 %; Platelet Count 226 k/uL (150-450); RBC 2.88 m/uL (3.80-5.40); RDW 14.4 % (11.5-15.5); WBC 8.4 k/uL (3.8-10.6)
[2019-05-06 09:41] LABS: African American GFR (CKD) >90 (>60 ml/min/1.73 sqM); Anion Gap 8 mmol/L; Blood Urea Nitrogen 11 mg/dL (7-17); Calcium 8.5 mg/dL (8.4-10.2); Carbon Dioxide 24 mmol/L (22-30); Chloride 104 mmol/L (98-107); Glucose 128 mg/dL (74-99); Non-African American GFR(CKD) 84 (>60 ml/min/1.73 sqM); Potassium 3.8 mmol/L (3.5-5.1); Sodium 136 mmol/L (137-145)
--- NOTE | 2019-05-06 09:55 | P.PN ---
Subjective Progress Note Date: 05/06/19 Principal diagnosis: Right proximal humerus fracture Patient is seen at bedside this morning. We are following her for a right proximal humerus fracture. He has pain at the right upper arm as expected but denies any new complaints. She denies numbness, tingling or calf pain. Review of systems is negative for fever, chills, chest pain, shortness of breath or other Objective - Vital Signs Vital signs: Vital Signs Temp 98.6 F 05/06/19 04:58 Pulse 69 05/06/19 04:58 Resp 16 05/06/19 04:58 BP 176/69 05/06/19 04:58 Pulse Ox 93 L 05/06/19 04:58 Intake & Output 05/05/19 05/06/19 05/06/19 18:59 06:59 18:59 Intake Total 400 Balance 400 Intake: Oral 400 Other: Voiding Method Bedpan Diaper # Voids 1 1 - Exam Inspection reveals a benign upper extremity. There is echymoses as expected. There is no active bleeding or drainage. Neurovascular status is intact throughout the upper extremity with motor and sensation fully intact. Calves are soft and nontender. 2+ radial and dorsalis pedis pulses and less than 2 second cap refill is present in upper and lower digits. - Constitutional General appearance: Present: no acute distress - Labs CBC & Chem 7: 05/06/19 09:16 05/06/19 09:16 Labs: Abnormal Lab Results - Last 24 Hours (Table) 05/06/19 05/06/19 Range/Units 09:16 09:16 RBC 2.88 L (3.80-5.40) m/uL Hgb 9.0 L (11.4-16.0) gm/dL Hct 27.9 L (34.0-46.0) % Sodium 136 L (137-145) mmol/L Glucose 128 H (74-99) mg/dL Microbiology - Last 24 Hours (Table) 05/04/19 05:49 Blood Culture - Preliminary Blood No Growth after 48 hours Assessment and Plan (1) Proximal humerus fracture Narrative/Plan: She will continue with routine orthopedic protocol including pain management, sling, wound care, PT, DVT prophylaxis and medical management. Expect that she will transfer to rehab tomorrow Current Visit: Yes Status: Acute Priority: Medium Code(s): S42.209A - UNSP FRACTURE OF UPPER END OF UNSP HUMERUS, INIT FOR CLOS FX SNOMED Code(s): 1 88277430 Time with Patient: Less than 30
[2019-05-06] MEDS: amLODIPine 2.5 MG TAB PO SCH (10:52)
--- NOTE | 2019-05-06 14:41 | P.PN ---
Subjective Progress Note Date: 05/06/19 Principal diagnosis: Patient is a pleasant 79-year-old female came in after a fall found to have a comminuted fracture of the right humerus. Patient denied any fever chills patient denied any dysuria nausea vomiting. Patient was evaluated by arthritic surgery and they believe this is nonsurgical. Patient had some bruises on the right shoulder in the right eye. Patient denied any increased urination burning urination or suprapubic pain patient doesn't have any symptoms of urinary tract infection. Her urine is bit abnormal but this is secondary to symptomatic bacteriuria 05/05/2019 Patient is seen and evaluated in follow-up today sitting up in the chair and continuing to have severe right upper extremity pain with movement. Patient was seen and evaluated by orthopedic surgery recommending conservative treatment at this time with no surgery. Patient will be going to [facility] for continued PT/OT therapy. Currently no reports of chest pain, shortness of breath, or palpitations. Patient is afebrile. No reports of nausea or vomiting and patient is tolerating diet. Patient currently remains on Keflex oral. PT/OT following. 05/06/2019 Patient is seen in follow-up today and continues to have right upper extremity pain and is currently using a sling. Patient states she just received her pain medication. No acute overnight issues. Patient continues to work with physical therapy. No reports of chest pain or shortness of breath. Patient is afebrile. No reports of nausea or vomiting and patient is tolerating diet. Social work following for discharge planning needs and placement to [facility] upon discharge. Objective - Vital Signs Vital signs: Vital Signs Temp 98.1 F 05/06/19 11:37 Pulse 56 L 05/06/19 11:37 Resp 16 05/06/19 11:37 BP 128/60 05/06/19 11:37 Pulse Ox 92 L 05/06/19 11:37 Intake & Output 05/05/19 05/06/19 05/06/19 18:59 06:59 18:59 Intake Total 400 Balance 400 Intake: Oral 400 Other: Voiding Method Bedpan Bedpan Diaper Diaper # Voids 1 4 # Bowel Movements 1 - Exam GENERAL: The patient is alert and oriented x3, not in any acute distress. Thin built HEENT: Pupils are round and equally reacting to light. EOMI. No scleral icterus. No conjunctival pallor. Normocephalic, atraumatic. No pharyngeal erythema. No thyromegaly. CARDIOVASCULAR: S1 and S2 present. No murmurs, rubs, or gallops. PULMONARY: Chest is clear to auscultation, no wheezing or crackles. ABDOMEN: Soft, nontender, nondistended, normoactive bowel sounds. No palpable organomegaly. MUSCULOSKELETAL: Deferred to orthopedic surgery patient has a sling to the right arm EXTREMITIES: No cyanosis, clubbing, or pedal edema. NEUROLOGICAL: Gross neurological examination did not reveal any focal deficits. SKIN: Bruises as mentioned in the HPI - Labs CBC & Chem 7: 05/06/19 09:16 05/06/19 09:16 Labs: Abnormal Lab Results - Last 24 Hours (Table) 05/06/19 05/06/19 Range/Units 09:16 09:16 RBC 2.88 L (3.80-5.40) m/uL Hgb 9.0 L (11.4-16.0) gm/dL Hct 27.9 L (34.0-46.0) % Sodium 136 L (137-145) mmol/L Glucose 128 H (74-99) mg/dL Microbiology - Last 24 Hours (Table) 05/04/19 05:49 Blood Culture - Preliminary Blood No Growth after 48 hours Assessment and Plan Assessment: -Comminuted fracture of the right arm: Nonsurgical conservative management with sling and pain medications. -Fall: mechanical fall due to generalized weakness and muscle atrophy age- related will benefit from a calcium supplementation and vitamin D -Multiple facial bruises -Asymptomatic bacteriuria for which patient will not require any antibiotics -Hypothyroidism continue with present methimazole. TSH is 2.3 -COPD without any acute exacerbation patient used to be smoker quit years ago -Hypertension -Hyperlipidemia -chronic low back pain and spinal stenosis -Coronary artery disease -DVT prophylaxis: Subcu heparin -GI prophylaxis: Protonix Plan: Continue with current medications and symptomatic treatment. Continue working with PT/OT. Social work following as patient will be going to [facility] for continued rehab. Further recommendations to follow. Possible discharge in 24 hours.
[2019-05-06] MEDS: ACETAMINOPHEN TAB 325 MG TAB PO PRN (20:57)
[2019-05-07] MEDS: HYDROcodone/APAP 5-325MG 1 EACH TAB PO PRN ×4 (01:16→21:05)
[2019-05-07] MEDS: amLODIPine 2.5 MG TAB PO SCH (08:12)
[2019-05-07] MEDS: ATORVASTATIN 10 MG TAB PO SCH (08:12)
[2019-05-07] MEDS: CEPHALEXIN 500 MG CAP PO SCH ×4 (08:12→22:33)
[2019-05-07] MEDS: LOSARTAN 50 MG TAB PO SCH (08:13)
[2019-05-07] MEDS: DULoxetine HCL 30 MG CAPSULE.DR PO SCH (08:13)
[2019-05-07] MEDS: METOPROLOL TARTRATE 50 MG TAB PO SCH ×2 (08:13→20:58)
[2019-05-07] MEDS: PANTOPRAZOLE 40 MG TABLET PO SCH (08:13)
[2019-05-07] MEDS: HEPARIN SODIUM,PORCINE 5,000 UNIT/ML 1 ML VIAL SQ SCH ×2 (08:13→20:58)
[2019-05-07] MEDS: METHIMAZOLE 5 MG TAB PO SCH (08:13)
[2019-05-07] MEDS ORDERED: ALBUTEROL NEBULIZED 2.5 MG/3 ML INHALATION PRN (08:30)
--- NOTE | 2019-05-07 08:50 | XR ---
EXAMINATION TYPE: XR chest 1V portable DATE OF EXAM: 05/07/2019 Comparison: None Clinical History: 79-year-old female shortness of breath Findings: Heart borderline enlarged. Mild diffuse interstitial density and some scattered patchy left mid and l ower lung opacities. Atherosclerotic arch calcifications. Impression: Borderline heart size and scattered interstitial densities. Correlate to exclude mild CHF versus deve loping atypical pneumonia.
[2019-05-07] MEDS ORDERED: FUROSEMIDE 10 MG/ML 4 ML VIAL IV STA (10:28)
[2019-05-07] MEDS: AZITHROMYCIN 500 MG TAB PO SCH (11:10)
--- NOTE | 2019-05-07 13:38 | P.PN ---
Subjective Progress Note Date: 05/07/19 Principal diagnosis: Patient is a pleasant 79-year-old female came in after a fall found to have a comminuted fracture of the right humerus. Patient denied any fever chills patient denied any dysuria nausea vomiting. Patient was evaluated by arthritic surgery and they believe this is nonsurgical. Patient had some bruises on the right shoulder in the right eye. Patient denied any increased urination burning urination or suprapubic pain patient doesn't have any symptoms of urinary tract infection. Her urine is bit abnormal but this is secondary to symptomatic bacteriuria 05/05/2019 Patient is seen and evaluated in follow-up today sitting up in the chair and continuing to have severe right upper extremity pain with movement. Patient was seen and evaluated by orthopedic surgery recommending conservative treatment at this time with no surgery. Patient will be going to [facility] for continued PT/OT therapy. Currently no reports of chest pain, shortness of breath, or palpitations. Patient is afebrile. No reports of nausea or vomiting and patient is tolerating diet. Patient currently remains on Keflex oral. PT/OT following. 05/06/2019 Patient is seen in follow-up today and continues to have right upper extremity pain and is currently using a sling. Patient states she just received her pain medication. No acute overnight issues. Patient continues to work with physical therapy. No reports of chest pain or shortness of breath. Patient is afebrile. No reports of nausea or vomiting and patient is tolerating diet. Social work following for discharge planning needs and placement to [facility] upon discharge. 05/07/2019 Patient is seen and evaluated today stating she was having some shortness of breath this morning and thought she heard a wheeze but states the shortness of breath has improved now. Chest x-ray ordered showing borderline heart size and scattered interstitial densities possible mild CHF. She will be given a dose of Lasix IV push and will initiate albuterol treatments. Instructed the patient to increase activity as tolerated and continue using incentive spirometer at least 10 times every hour while awake. Currently no reports of chest pain or palpitations. Patient is afebrile. No reports of nausea or vomiting and patient is tolerating diet. Continues to have some right upper arm pain but states is tolerable. BNP ordered and is pending. Patient currently on Keflex and will initiate azithromycin as well. Social work following as patient's family are deciding on an ECF or AFC for placement. Objective - Vital Signs Vital signs: Vital Signs Temp 97.6 F 05/07/19 04:22 Pulse 69 05/07/19 04:22 Resp 20 05/07/19 04:22 BP 166/71 05/07/19 04:22 Pulse Ox 93 L 05/07/19 04:22 Intake & Output 05/06/19 05/07/19 05/07/19 18:59 06:59 18:59 Intake Total 600 Balance 600 Intake: Oral 600 Other: Voiding Method Bedpan Diaper Diaper Diaper Incontinent # Voids 1 2 # Bowel Movements 1 - Exam GENERAL: The patient is alert and oriented x3, not in any acute distress. Thin built HEENT: Pupils are round and equally reacting to light. EOMI. No scleral icterus. No conjunctival pallor. Normocephalic, atraumatic. No pharyngeal erythema. No thyromegaly. CARDIOVASCULAR: S1 and S2 present. No murmurs, rubs, or gallops. PULMONARY: Diminished breath sounds in the bases with some mild expiratory wheezing noted. No rhonchi or crackles noted. ABDOMEN: Soft, nontender, nondistended, normoactive bowel sounds. No palpable organomegaly. MUSCULOSKELETAL: Deferred to orthopedic surgery patient has a sling to the right arm EXTREMITIES: No cyanosis, clubbing, or pedal edema. NEUROLOGICAL: Gross neurological examination did not reveal any focal deficits. SKIN: Bruises as mentioned in the HPI - Labs CBC & Chem 7: 05/06/19 09:16 05/06/19 09:16 Labs: Microbiology - Last 24 Hours (Table) 05/04/19 05:49 Blood Culture - Preliminary Blood No Growth after 72 hours Assessment and Plan Assessment: -Comminuted fracture of the right arm: Nonsurgical conservative management with sling and pain medications. -Shortness of breath possibly due to COPD acute exacerbation, will initiate albuterol nebulized treatments as needed instructed the patient to increase activity as tolerated. Incentive spirometer ordered -Fall: mechanical fall due to generalized weakness and muscle atrophy age- related will benefit from a calcium supplementation and vitamin D -Multiple facial bruises -Asymptomatic bacteriuria for which patient will not require any antibiotics -Hypothyroidism continue with present methimazole. TSH is 2.3 -COPD without any acute exacerbation patient used to be smoker quit years ago -Hypertension -Hyperlipidemia -chronic low back pain and spinal stenosis -Coronary artery disease -DVT prophylaxis: Subcu heparin -GI prophylaxis: Protonix Plan: Continue with current medications and symptomatic treatment. Patient was having some mild shortness of breath this morning although states has resolved and a chest x-ray was done showing possible mild CHF and a dose of Lasix was given IV push. Initiated albuterol treatments as needed as patient has history of COPD. Continue working with PT/OT. Social work following as patient will be going to [facility] for AFC for continued rehab. Family deciding on which location. Further recommendations to follow. Possible discharge in 24 hours.
[2019-05-08] MEDS: ACETAMINOPHEN TAB 325 MG TAB PO PRN (00:11)
[2019-05-08 05:03] VITALS: BP 157/69; RESP 20; TEMP 98.1
[2019-05-08] MEDS: DULoxetine HCL 30 MG CAPSULE.DR PO SCH (09:51)
[2019-05-08] MEDS: ATORVASTATIN 10 MG TAB PO SCH (09:51)
[2019-05-08] MEDS: AZITHROMYCIN 500 MG TAB PO SCH (09:51)
[2019-05-08] MEDS: CEPHALEXIN 500 MG CAP PO SCH ×2 (09:51→12:46)
[2019-05-08] MEDS: PANTOPRAZOLE 40 MG TABLET PO SCH (09:52)
[2019-05-08] MEDS: HEPARIN SODIUM,PORCINE 5,000 UNIT/ML 1 ML VIAL SQ SCH (09:52)
[2019-05-08] MEDS: amLODIPine 2.5 MG TAB PO SCH (09:52)
[2019-05-08] MEDS: METHIMAZOLE 5 MG TAB PO SCH (09:52)
[2019-05-08] MEDS: HYDROcodone/APAP 5-325MG 1 EACH TAB PO PRN (09:52)
[2019-05-08] MEDS: LOSARTAN 50 MG TAB PO SCH (09:52)
[2019-05-08] MEDS: METOPROLOL TARTRATE 50 MG TAB PO SCH (09:52)
[2019-05-08] MEDS ORDERED: HYDROcodone/APAP 5-325MG 1 EACH TAB PO STA (10:11)
--- NOTE | 2019-05-08 10:32 | P.DS ---
Providers Date of admission: 05/05/19 07:45 Expected date of discharge: 05/08/19 Attending physician: Leidy Tompkins Consults: 05/03/19 22:45 Consult Physician Routine Consulting Provider: Edvin Eddy Consult Reason/Comments: Proximal right humerus fracture Do you want consulting provider notified?: Already Contacted Primary care physician: Luz Elena Castellanos [facility] [place] Course: Final diagnosis -Comminuted fracture of the right arm -Shortness of breath possibly due to COPD acute exacerbation -Fall: mechanical fall due to generalized weakness and muscle atrophy age-rela shane -Multiple facial bruises -Asymptomatic bacteriuria -Hypothyroidism -COPD used to be smoker quit years ago -Hypertension -Hyperlipidemia -chronic low back pain and spinal stenosis -Coronary artery disease -DVT prophylaxis -GI prophylaxis Discharge disposition Patient is being discharged in a stable condition with guarded prognosis to [facility] for continued PT/OT therapy. Patient will continue with oral antibiotics in the form of Zithromax along with Keflex for the next 4 days and then may discontinue. Total time taken is 35 minutes. History of present illness This is an 79-year-old female who was recently admitted after a fall and was found to have a comminuted fracture of the right humerus and was being closely monitored. She was seen and evaluated by orthopedic surgery recommending conservative treatment with no surgical intervention at this time and to continue with pain management and sling along with some physical therapy. Patient did have some scratches and abrasions to the skin of the shoulder and will continue on Keflex oral 4 times daily for the next 4 days to complete the course. Patient was also initiated on some Zithromax she had a brief moment of shortness of breath and will complete the course of 4 more days and then may discontinue. Patient does have a history of COPD and will continue with albuterol treatments as needed. Currently no reports of chest pain, shortness of breath, or palpitations. Patient is afebrile. No reports of nausea or vomiting and patient is tolerating diet. Patient is to continue working with physical therapy for strength and mobility and to continue with orthopedic recommendations of the right humerus fracture. [facility] in 1-2 weeks. Patient being transferred to [facility] today. On exam vital signs are stable. Temp is 98.1F, pulse is 71, respirations are 20, blood pressure is 157/69, oxygen saturation is 93-94% on room air. cardio S1, S2. Respiratory system shows diminished breath sounds at the bases otherwise clear to auscultation. Abdomen is soft, thin, nontender. Nervous system shows mild diffuse weakness. Please refer to medication reconciliation sheet for a list of medications. Patient Condition at Discharge: Fair Plan - Discharge Summary Discharge Rx Participant: Yes New Discharge Prescriptions: New Cephalexin [Keflex] 500 mg PO QID 4 Days #16 cap HYDROcodone/APAP 5-325MG [[place] 5-325] 1 each PO Q6HR PRN #4 tab PRN Reason: Pain amLODIPine [Norvasc] 2.5 mg PO DAILY tab Acetaminophen Tab [Tylenol] 650 mg PO Q6HR PRN tab PRN Reason: Mild Pain Or Fever > 100.5 Albuterol Nebulized [Ventolin Nebulized] 2.5 mg INHALATION RT-QID PRN ml PRN Reason: Wheezing Azithromycin [Zithromax] 500 mg PO DAILY 4 Days #4 tab Continue Pantoprazole Sodium [Protonix] 40 mg PO DAILY Metoprolol Tartrate [Lopressor] 50 mg PO BID hydrALAZINE HCL [Apresoline] 25 mg PO Q12H Methimazole [Tapazole] 5 mg PO MOTUWETHFR Losartan Potassium 100 mg PO DAILY DULoxetine HCL [Cymbalta] 30 mg PO DAILY Cyanocobalamin [Vitamin B-12 Injection] 1,000 mcg IM QMONTH Atorvastatin [Lipitor] 10 mg PO DAILY Discontinued HYDROcodone/APAP 5-325MG [[place] 5-325] 1 tab PO Q4HR PRN PRN Reason: Pain amLODIPine [Norvasc] 5 mg PO Q48H Discharge Medication List Atorvastatin [Lipitor] 10 mg PO DAILY 05/04/19 [History] Cyanocobalamin [Vitamin B-12 Injection] 1,000 mcg IM QMONTH 05/04/19 [History] DULoxetine HCL [Cymbalta] 30 mg PO DAILY 05/04/19 [History] Losartan Potassium 100 mg PO DAILY 05/04/19 [History] Methimazole [Tapazole] 5 mg PO MOTUWETHFR 05/04/19 [History] Metoprolol Tartrate [Lopressor] 50 mg PO BID 05/04/19 [History] Pantoprazole Sodium [Protonix] 40 mg PO DAILY 05/04/19 [History] hydrALAZINE HCL [Apresoline] 25 mg PO Q12H 05/04/19 [History] Acetaminophen Tab [Tylenol] 650 mg PO Q6HR PRN tab 05/08/19 [Rx] Albuterol Nebulized [Ventolin Nebulized] 2.5 mg INHALATION RT-QID PRN ml 05/08/19 [Rx] Azithromycin [Zithromax] 500 mg PO DAILY 4 Days #4 tab 05/08/19 [Rx] Cephalexin [Keflex] 500 mg PO QID 4 Days #16 cap 05/08/19 [Rx] HYDROcodone/APAP 5-325MG [[place] 5-325] 1 each PO Q6HR PRN #4 tab 05/08/19 [Rx] amLODIPine [Norvasc] 2.5 mg PO DAILY tab 05/08/19 [Rx] Follow up Appointment(s)/Referral(s): Luz Elena Mayes DO [Primary Care Provider] - 1-2 days Edvin Eddy DO [Medical Doctor] - 1 Week (Patient may follow-up with Dr. Eddy at [facility] in 1 week following discharge. ) Activity/Diet/Wound Care/Special Instructions: Patient is going to [facility] 1. Nonweightbearing with the right upper extremity 2. Patient may use sling to help support the right shoulder for comfort support as needed 3. Patient may perform some active range of motion with flexion and extension of the right elbow to help avoid getting a frozen elbow 4. Patient may perform some light activities with her right hand but should avoid any lifting with the right upper extremity 5. Keep small wounds over the right shoulder clean; may cover with dressing as needed Patient is going to [facility] Continue with antibiotics for the next 4 days and then may discontinue Continue current heart healthy diet Continue with physical therapy Discharge Disposition: TRANSFER TO SNF/ECF
[2019-05-08 11:14] VITALS: PULSE 61
--- NOTE | 2019-05-12 01:37 | CDI ---
Documentation Clarification Form Date: 05/12/2019 From: Jorge A Magaña Phone: If you have a question about this query, please contact Arina Rodarte, Order Analyst at [phone] between 8am and 5pm. Admit Date: 05/05/2019 Discharge Date: 05/08/2019 Patient Name: Sisi Meadows Visit Number: [id number] ATTENTION: The Clinical Documentation Specialists (CDI) and [facility] Coding Staff appreciate your assistance in clarifying documentation. Please respond to the clarification below the line at the bottom and electronically sign. The CDI & [facility] Coding staff will review the response and follow-up if needed. Please note: Queries are made part of the Legal Health Record. If you have any questions, please contact the author of this message via ITS. Dear Chris Cuenca., CHF is documented in 05/06 progress note "some mild shortness of breath this morning although states has resolved and a chest x-ray was done showing possible mild CHF and a dose of Lasix was given IV push". History/Risk Factors: COPD, hyperlipidemia, CAD. VS/Pulse OX: Pulse 69 05/07/19 04:22 Resp 20 05/07/19 04:22 BP 166/71 05/07/19 04:22 Pulse Ox 93 L 05/07/19 04:22 BNP: 1130 Chest X Ray:Borderline heart size and scattered interstitial densities.Correlate to exclude mild CHF versus developing atypical pneumonia. Treatment: IV lasix. In your professional opinion, can you please clarify the acuity and type of CHF if known? Systolic Heart Failure: Acute Chronic Acute on Chronic Diastolic Heart Failure: Acute Chronic Acute on Chronic Systolic & Diastolic Heart Failure: Acute Chronic Acute on Chronic Heart Failure Unable to Determine Other, please specify Unable to Determine MTDD
== END 2019-05-08 13:22 | DRG 563 ==
LOC: EC 18:23 → 5NMEDONC 22:44 → OBSVTOIN 05-05 07:45
PROVIDERS: ADMIT Internal Medicine; ATTEND Internal Medicine
DX: S42.211A Unspecified displaced fracture of surgical neck of right humerus, initial encounter for closed fracture (principal); J44.1 Chronic obstructive pulmonary disease with (acute) exacerbation; E03.9 Hypothyroidism, unspecified; E78.5 Hyperlipidemia, unspecified; G25.81 Restless legs syndrome; G89.29 Other chronic pain; I10 Essential (primary) hypertension; I25.10 Atherosclerotic heart disease of native coronary artery without angina pectoris; K21.9 Gastro-esophageal reflux disease without esophagitis; M65.20 Calcific tendinitis, unspecified site; W18.30XA Fall on same level, unspecified, initial encounter; M48.00 Spinal stenosis, site unspecified; M54.5 Low back pain; S00.83XA Contusion of other part of head, initial encounter; S40.011A Contusion of right shoulder, initial encounter; Z88.5 Allergy status to narcotic agent; Z88.2 Allergy status to sulfonamides; Z88.8 Allergy status to other drugs, medicaments and biological substances; I25.2 Old myocardial infarction; Z87.891 Personal history of nicotine dependence; Z87.440 Personal history of urinary (tract) infections; Z87.01 Personal history of pneumonia (recurrent); Z98.49 Cataract extraction status, unspecified eye; Z86.19 Personal history of other infectious and parasitic diseases; Z79.899 Other long term (current) drug therapy; Z86.73 Personal history of transient ischemic attack (TIA), and cerebral infarction without residual deficits; Z91.81 History of falling
CPT/HCPCS: 36415; 70450; 70486; 71045; 72125; 80048; 80053; 81001; 82550; 83735; 83880; 84443; 85025; 85027; 87040; 90471; 90715; 94640; 96365; 96375; 99285